=== PATIENT | female | born 1940 | race Caucasian/White ===

== ENCOUNTER → 2017-09-04 | Outpatient (CLI) | payer OTHER, MEDICARE ==
[~2017-09-04] MED LIST: CHOL20007 PO; MULT-506 PO
--- NOTE | 2017-09-04 09:34 | DIAGNOSTIC IMAGING REPORT ---
RIGHT WRIST 5 VIEWS CLINICAL HISTORY: Right wrist pain and swelling. No reported history of from a. FINDINGS: 5 views of the right wrist are obtained. No prior studies are available for comparison at the time of dictation. The skeletal structures are osteopenic. No fracture is seen. There is mild negative ulnar variance. Degenerative narrowing seen at the radiocarpal articulation. Advanced arthritic change is present at the first carpometacarpal and second carpometacarpal joints with bony overgrowth, sclerosis, subchondral cyst formation, and mild subluxation at the first carpometacarpal joint. Only mild degenerative change is seen throughout the remainder of the wrist. Degenerative cystic changes present in the styloid process of the ulna. No erosive change is seen. Soft tissue edema is noted around the wrist. No subcutaneous gas or radiodense foreign body is identified. IMPRESSION: 1. Soft tissue swelling with no acute bony abnormality seen in the left wrist. 2. Osteopenia and arthritic change as above, greatest at the first carpometacarpal joint. Electronically signed by: Clarence Roque M.D. 09/04/2017 9:32 AM Dictated Date/Time: 09/04/2017 9:30 AM
== END | disposition home or self-care (01) ==
LOC: C.RAD1850 09:18
PROVIDERS: ATTEND Family Medicine
DX: M25.531 Pain in right wrist (principal); M79.89 Other specified soft tissue disorders; M85.831 Other specified disorders of bone density and structure, right forearm; M89.8X3 Other specified disorders of bone, forearm

== ENCOUNTER → 2018-03-11 | Outpatient (CLI) | payer OTHER, MEDICARE | END | disposition home or self-care (01) | LOC: C.MAMM 09:28 | PROVIDERS: ATTEND Family Medicine | DX: M85.89 Other specified disorders of bone density and structure, multiple sites (principal) ==

== ENCOUNTER 2022-08-27 18:13 | Inpatient (IN) ==
[2022-08-27] MEDS ORDERED: MoRPHine SULFATE 2 MG/ML CARP IM STA (18:52)
[2022-08-27] MEDS ORDERED: ONDANSETRON 4 MG OD TAB PO STA (18:52)
--- NOTE | 2022-08-27 19:29 | XRay Report ---
XR hip RT 2V w pelvis HISTORY: 82 years-old Female fall, hip pain acute right hip pain status post fall COMPARISON: CT abdomen and pelvis 03/26/2014 TECHNIQUE: AP view of the pelvis with 2 views of the right hip FINDINGS: Mild osteoarthritis of the hips. Demineralized appearance of the bones. There is an acute subcapital fracture of the right femur which demonstrates 3.5 cm of superior elevation and several millimeters o f impaction. No dislocation. Moderate lateral soft tissue swelling. No additional acute fracture or d islocation identified. IMPRESSION: Acute impacted and displaced subcapital right femoral fracture. ACT 112: Negative or not required by law. The above report was generated using voice recognition software. It may contain grammatical, syntax o r spelling errors. Electronically signed by: Primo Ferguson M.D. 08/27/2022 7:27 PM
[2022-08-27] MEDS ORDERED: MoRPHine SULFATE 2 MG/ML CARP IV PRN (19:55)
[2022-08-27] MEDS: HYDROmorphone INJ 0.5 MG/0.5 ML SYR IV PRN ×2 (20:33→22:32)
[2022-08-27 20:51] LABS: Hematocrit (blood only) 37.9 % (34.1-44.9); Hemoglobin 13.2 g/dl (12.0-16.0); Mean Corpuscular Hemoglobin 34.1 pg (25.0-34.0); Mean Corpuscular Hgb Conc 34.8 g/dL (32.0-36.0); Mean Corpuscular Volume 97.9 fL (80.0-100.0); Mean Platelet Volume 9.9 fL (9.4-12.3); Platelet Count 182 K/uL (130-400); RDW Coefficient of Variation 12.5 % (11.5-14.5); RDW Standard Deviation 44.9 fL (36.4-46.3); Red Blood Count 3.87 M/uL (3.93-5.22); White Blood Count 12.79 K/ul (4.8-10.8)
[2022-08-27 21:03] LABS: INR 1.2 (0.9-1.1); Partial Thromboplastin Ratio 1.1; Prothrombin Time 12.9 Seconds (9.0-12.0)
[2022-08-27 21:19] LABS: Appearance Urine Clear (Clear); Bacteria Urine Automated Negative (Negative); Bilirubin Urine Negative (Negative); Blood Urine 3+ (Negative); Color Urine Yellow; Glucose Urine UA Trace (Negative); Ketones Urine 1+ (Negative); Leukocyte Esterase Urine Negative (Negative); Nitrite Urine Negative (Negative); RBC Urine Automated >30 /hpf (0-4); Specific Gravity Urine 1.012 (1.000-1.030); Urobilinogen Urine Negative (Negative); pH Urine 7.5 (4.5-7.5)
[2022-08-27 21:22] LABS: Protein Urine 3+ (Negative)
--- NOTE | 2022-08-27 21:24 | History & Physical Report ---
Date of Service August 27, 2022 Assessment & Plan (1) Closed right hip fracture: Plan: Patient is an 82 yo female with PMHx of CKD, HTN, colon cancer, osteopenia, secondary renal hyperparathyroidism admitted to [facility] on 08/27/22 for right hip fracture s/p fall. Right hip fracture - Fall from standing position at home on 08/27/22 - Hip/pelvis XR: Acute impacted and displaced subcapital right femoral fracture. - Ortho consulted - Will admit for pain control pending surgical intervention - Pain control regimen: morphine 2mg IV q3h for pain 1-5; morphine 4mg IV q3h for pain 6-10 - Zofran prn nausea - IVF with LR at 125 cc/hr - NPO at midnight - Leukocytosis on admission with WBC 12.79, likely reactive - CBC and CMP in AM Hypokalemia - Mild hypokalemia, K 3.3 - Replete with 20 mEq K on admission - Recheck in AM CKD stage G2/A2 - Patient follows with nephrology, Dr. Burnette - Baseline Cr 1.3 w/ mGFR 69 cc/min Proteinuria with history of plasmacytoma (resected) - 3+ protein on UA today - Monitor. Recommend outpatient f/u Hypertension - Hx of HTN that has not required antihypertensive therapy - Suspect HTN on admission associated with pain response - Continue to monitor Vitamin D Deficiency - Most recent Vitamin D 06/2022 was 44 - Continue home Vitamin D Dispo: Admit to [facility] [place] with plan for ortho evaluation FENGI: NPO. IVF with LR at 125 cc/hr Code Status: FULL CODE (2) Vitamin D deficiency: (3) Proteinuria: (4) Chronic kidney disease, stage II (mild): (5) Hypertension: History of Present Illness Chief Complaint: right hip fracture s/p fall Primary Care Provider: Jesús Delgadillo Patient is an 82 yo female with PMHx of CKD, HTN, colon cancer, osteopenia, secondary renal hyperparathyroidism who presented to [facility] on 08/27/22 after fall. Patient states that around 2:00pm this afternoon, she was sitting on a low barstool at her kitchen island when she stood up from the stool, twisted, tripped on the stool, and fell onto the ceramic tile floor. Patient landed on her right elbow and right hip. She did not hit her head or have LOC. Patient was able to stand, clean up her dishes, grab her book, and walk over to her chair to sit. She did, however, note some difficulty with ambulation and pain in the hip. While sitting in the chair, patient had progressively worsening right hip pain and she "knew that it was broken." After about 45 minutes of sitting in the chair, she tried to get up to get Tylenol for pain relief but she was unable to stand/walk out of the chair. Pain progressed to a 9/10 sharp pain. Patient states that she has intermittent sharp pains with attempted movement. Prior to today's fall, she was at her baseline health. No recent illness. Denies fever, c hills, CP, SOB, abd pain, nausea, vomiting, diarrhea, constipation, numbness, or tingling. No prior hx of hip fracture. She does have a hx of left wrist fracture about 6-7 years ago and more recently a 3rd metatarsal left foot stress fracture. Patient lives alone with her cat. There are no steps to enter her home. All living is on one floor with no step inside of the home. She does have help; sister lives nearby. Patient is independent in ADLs. She does her own shopping, cooking, and cleaning. Allergies Allergy/AdvReac Type Severity Reaction Status Date / Time No Known Allergies Allergy Verified 08/27/22 23:01 Home Medications Medication Instructions Recorded Confirmed Type cholecalciferol (vitamin D3) 50 1,000 units PO QPM 05/07/20 08/27/22 History mcg (2,000 unit) capsule iiccxsczzghe-[id number]-ertd-minerals 1 tab PO DAILY 08/27/22 08/27/22 History Past Med/Surg History Medical History Chronic kidney disease, stage II (mild) Extramedullary plasmacytoma hx; bladder; treated surgically History of breast cancer > 25 years ago; treated surgically History of colon cancer approx 5 years ago; surgery + chemo History of hemorrhoids Hypertension Osteoporosis Surgical History H/O mastectomy History of breast surgery Enlargement Procedure with Prosthetic Implant History of cataract surgery History of colon resection History of dilation and curettage History of mastectomy BL History of mastoidectomy History of partial colectomy History of surgery Ureteroplasty Family History Sister Mesothelioma Other No family history of adverse response to anesthesia Denies family history of Colon cancer Ovarian cancer Breast cancer Social History Smoking Status: Never smoker Second Hand Exposure: No; Do You Dip or Chew Tobacco: No; Tobacco Cessation Education Requested by Patient: No Hx Alcohol Use: No Hx Substance Use: No Preferred Language: Sinhala Communication Ability: Effective Date Puller Required: No Beliefs That Will Affect Care: None marital status: / Current Living Situation: Alone Other Information That Helps Us Care for You: No Feels Safe at Home: Yes Safety Concerns: Feels Safe At This Time Assistive Devices: None Review of Systems Review of Systems: See HPI Physical Exam Physical Exam: GENERAL: No acute distress. Well developed and well nourished. Vital signs reviewed. EYES: PERRLA. EOMI. Anicteric sclerae. HENT: Moist mucous membranes. No pharyngeal erythema or exudates. RESPIRATORY: Clear to auscultation bilaterally with auscultation anteriorly and laterally; unable to listen to posterior lung sheth. No wheezing, rales, or rhonchi. CARDIOVASCULAR: Regular rate and rhythm. No murmurs. No JVD. ABDOMEN: Soft, non-tender and non-distended. Normal bowel sounds. EXTREMITIES: No edema. Right lower extremity shortened and externally rotated. There is a large hematoma over right lateral hip. The left hip is nontender to palpation. Lower extremities NVI bilaterally. There is a large hematoma over right elbow w/o significant tenderness to palpation. SKIN: Warm, dry. NEUROLOGIC: A/O x3. Normal speech. CN II-XII grossly intact, but not individually tested. PSYCHIATRIC: Cooperative. Appropriate mood and affect. Results & Data Results & Data ([facility]) Vital Signs (Past 12 Hours) Vital Signs Temp Pulse Resp BP Pulse Ox O2 Del Method 08/27/22 18:18 36.5 C 110 H 20 205/114 H 96 Room Air Laboratory Results 08/27/22 08/27/22 08/27/22 Range/Units 21:11 21:03 20:31 WBC (4.8-10.8) K/ul RBC (3.93-5.22) M/uL Hgb (12.0-16.0) g/dl Hct (34.1-44.9) % MCV (80.0-100.0) fL MCH (25.0-34.0) pg MCHC (32.0-36.0) g/dL RDW Std Deviation (36.4-46.3) fL RDW Coeff of Andreia (11.5-14.5) % Plt Count (130-400) K/uL MPV (9.4-12.3) fL Immature Gran % (Auto) % Neut % (Auto) % Lymph % (Auto) % [place] % (Auto) % Eos % (Auto) % Baso % (Auto) % Neut # (Auto) (1.4-6.5) K/uL Lymph # (Auto) (1.2-3.4) K/uL [place] # (Auto) (0.24-0.82) K/uL Eos # (Auto) (0-0.50) K/uL Baso # (Auto) (0-0.2) K/uL Immature Gran # (Auto) (0.00-0.02) K/uL PT (9.0-12.0) Seconds INR (0.9-1.1) APTT (21.0-31.0) Seconds PTT Ratio Sodium 132 L (136-145) mmol/L Potassium 3.3 L (3.5-5.1) mmol/L Chloride 96 L (98-107) mmol/L Carbon Dioxide 26 (21-32) mmol/L Anion Gap 10 (3-11) BUN 19 (6-23) mg/dl Creatinine 0.78 (0.6-1.2) mg/dl Est Cr Clr Drug Dosing Not Reportable Est GFR ( Amer) 80.9 ml/min Est GFR (Non-Af Amer) 69.8 ml/min BUN/Creatinine Ratio 24.4 H (10-20) Glucose 199 H (70-99(Fasting)) mg/dl Calcium 9.9 (8.5-10.1) mg/dl Total Bilirubin 1.8 H (0.2-1.0) mg/dl AST 35 (13-39) U/L ALT 35 (7-52) U/L Alkaline Phosphatase 62 (34-104) U/L Total Protein 8.2 (6.0-8.3) gm/dl Albumin 4.7 (3.4-5.0) gm/dl Globulin 3.5 (2.5-4.0) gm/dl Albumin/Globulin Ratio 1.3 (0.9-2) Urine Color Yellow Urine Appearance Clear (Clear) Urine pH 7.5 (4.5-7.5) Ur Specific [place] 1.012 (1.000-1.030) Urine Protein 3+ H (Negative) Urine Glucose (UA) Trace H (Negative) Urine Ketones 1+ H (Negative) Urine Blood 3+ H (Negative) Urine Nitrite Negative (Negative) Urine Bilirubin Negative (Negative) Urine Urobilinogen Negative (Negative) Ur Leukocyte Esterase Negative (Negative) Urine WBC (Auto) 1-5 (0-5) /hpf Urine RBC (Auto) >30 H (0-4) /hpf U Hyaline Cast (Auto) 1-5 (0-5) /lpf U Epithel Cells (Auto) 10-20 H (0-5) /lpf Urine Bacteria (Auto) Negative (Negative) SARS-CoV-2, RNA, NAAT NEGATIVE (NEGATIVE) 08/27/22 08/27/22 Range/Units 20:31 20:31 WBC 12.79 H (4.8-10.8) K/ul RBC 3.87 L (3.93-5.22) M/uL Hgb 13.2 (12.0-16.0) g/dl Hct 37.9 (34.1-44.9) % MCV 97.9 (80.0-100.0) fL MCH 34.1 H (25.0-34.0) pg MCHC 34.8 (32.0-36.0) g/dL RDW Std Deviation 44.9 (36.4-46.3) fL RDW Coeff of Andreia 12.5 (11.5-14.5) % Plt Count 182 (130-400) K/uL MPV 9.9 (9.4-12.3) fL Immature Gran % (Auto) 0.7 % Neut % (Auto) 94.0 % Lymph % (Auto) 1.6 % [place] % (Auto) 3.5 % Eos % (Auto) 0.0 % Baso % (Auto) 0.2 % Neut # (Auto) 12.02 H (1.4-6.5) K/uL Lymph # (Auto) 0.20 L (1.2-3.4) K/uL [place] # (Auto) 0.45 (0.24-0.82) K/uL Eos # (Auto) 0.00 (0-0.50) K/uL Baso # (Auto) 0.03 (0-0.2) K/uL Immature Gran # (Auto) 0.09 H (0.00-0.02) K/uL PT 12.9 H (9.0-12.0) Seconds INR 1.2 H (0.9-1.1) APTT 31.0 (21.0-31.0) Seconds PTT Ratio 1.1 Sodium (136-145) mmol/L Potassium (3.5-5.1) mmol/L Chloride (98-107) mmol/L Carbon Dioxide (21-32) mmol/L Anion Gap (3-11) BUN (6-23) mg/dl Creatinine (0.6-1.2) mg/dl Est Cr Clr Drug Dosing Est GFR ( Amer) ml/min Est GFR (Non-Af Amer) ml/min BUN/Creatinine Ratio (10-20) Glucose (70-99(Fasting)) mg/dl Calcium (8.5-10.1) mg/dl Total Bilirubin (0.2-1.0) mg/dl AST (13-39) U/L ALT (7-52) U/L Alkaline Phosphatase (34-104) U/L Total Protein (6.0-8.3) gm/dl Albumin (3.4-5.0) gm/dl Globulin (2.5-4.0) gm/dl Albumin/Globulin Ratio (0.9-2) Urine Color Urine Appearance (Clear) Urine pH (4.5-7.5) Ur Specific [place] (1.000-1.030) Urine Protein (Negative) Urine Glucose (UA) (Negative) Urine Ketones (Negative) Urine Blood (Negative) Urine Nitrite (Negative) Urine Bilirubin (Negative) Urine Urobilinogen (Negative) Ur Leukocyte Esterase (Negative) Urine WBC (Auto) (0-5) /hpf Urine RBC (Auto) (0-4) /hpf U Hyaline Cast (Auto) (0-5) /lpf U Epithel Cells (Auto) (0-5) /lpf Urine Bacteria (Auto) (Negative) SARS-CoV-2, RNA, NAAT (NEGATIVE) Diagnostic Findings [facility] [place] [phone] XRay Report Patient:SHELIA ALAMO Admit Date:08/27/22 MR#:[id number] Address1:[address] Acct ID:[id number] Address2: Date:[address] [facility] Zip:[place] [address] Age:82 Location:ED Sex:F Room/Bed: Att Phy: Diagnosis:FALL, HIP PAIN, TROUBLE WALKING Magdalena Phy:Jesús Delgadillo M.D. Service Date:08/27/22 Fam Phy: Interpreting Phy:Primo FergusonAdmit Phy: Ordering Phy:Sonia Hutchison PA-C cc: ~ XR hip RT 2V w pelvis HISTORY: 82 years-old Female fall, hip pain acute right hip pain status post fall COMPARISON: CT abdomen and pelvis 03/26/2014 TECHNIQUE: AP view of the pelvis with 2 views of the right hip FINDINGS: Mild osteoarthritis of the hips. Demineralized appearance of the bones. There is an acute subcapital fracture of the right femur which demonstrates 3.5 cm of superior elevation and several millimeters of impaction. No dislocation. Moderate lateral soft tissue swelling. No additional acute fracture or dislocation identified. IMPRESSION: Acute impacted and displaced subcapital right femoral fracture. ACT 112: Negative or not required by law. The above report was generated using voice recognition software. It may contain grammatical, syntax or spelling errors. Electronically signed by: Primo Ferguson M.D. 08/27/2022 7:27 PM Dictated:08/27/221925 Transcribed: 08/27/221925 Supervising Physician Co-Signing Physician Notes Attending addendum: I have physically seen this patient, have supervised the medical residents activities, and agree with the H&P unless as otherwise noted. Assessment and Plan: Acute impacted, displaced sup capital right femoral fracture- N.p.o. after midnight Acetaminophen 1 g IV every 8 hours as needed mild pain or fever Morphine sulfate 2 mg IV every 3 hours as needed for moderate pain Morphine sulfate 4 mg IV every 3 hours as needed for severe pain Zofran 4 mg IV every 6 hours as needed Famotidine 20 mg IV every 12 hours Orthopedic surgery consult Remaining orders and notations as noted Resident Activity Tracking Resident Involvement: Resident Care Provided Care Provided: [facility] Medicine
[2022-08-27 21:38] LABS: Alanine Aminotransferase 35 U/L (7-52); Albumin Globulin Ratio 1.3 (0.9-2); Albumin Level 4.7 gm/dl (3.4-5.0); Alkaline Phosphatase 62 U/L (34-104); Anion Gap 10 (3-11); Aspartate Aminotransferase 35 U/L (13-39); BUN Creatinine Ratio 24.4 (10-20); Bilirubin,Total 1.8 mg/dl (0.2-1.0); Blood Urea Nitrogen 19 mg/dl (6-23); Calcium 9.9 mg/dl (8.5-10.1); Carbon Dioxide 26 mmol/L (21-32); Chloride 96 mmol/L (98-107); Est GFR (African American) 80.9 ml/min; Est GFR (Non-African American) 69.8 ml/min; Globulin 3.5 gm/dl (2.5-4.0); Glucose 199 mg/dl (70-99(Fasting)); Potassium 3.3 mmol/L (3.5-5.1); Sodium 132 mmol/L (136-145); Total Protein 8.2 gm/dl (6.0-8.3)
[2022-08-27 21:42] LABS: Basophils # (auto) 0.03 K/uL (0-0.2); Basophils % (auto) 0.2 %; Immature Granulocytes # (auto) 0.09 K/uL (0.00-0.02); Immature Granulocytes % (auto) 0.7 %; Lymphocytes % (auto) 1.6 %; Monocytes # (auto) 0.45 K/uL (0.24-0.82); Monocytes % (auto) 3.5 %; Neutrophils # (auto) 12.02 K/uL (1.4-6.5)
--- NOTE | 2022-08-27 23:57 | Emergency Department Note ---
History of Present Illness General Chief complaint: Hip Pain Stated complaint: FALL, HIP PAIN, TROUBLE WALKING Time Seen by Provider: 08/27/22 18:41 History of Present Illness Maximum Pain Intensity: 6 This 82-year-old female patient presents to the emergency department with her sister and her sister's [id number] complaining of right hip pain. The patient states that around 2 or 2:30 PM today she was on a stool trying to swat at the cat. When she went to get off of the stool, the stool twisted and knocked her to a standing position and then she tripped and fell over the stool falling to the tile floor onto her right hip. She is not able to walk currently, but was able to walk initially right after the fall. She is able to move the hip slightly, but usually gets sharp shooting pains whenever she tries to move it. She rates the pain as 8/10. She has not taken any medication for the symptoms. No previous fractures or surgeries to the right hip. She denies hitting her head. No loss of consciousness. She denies any neck or back pain. Denies any chest pain, shortness of breath, abdominal pain, nausea, or vomiting. She denies injuring any other extremities. She denies any numbness or tingling to the right lower extremity. Home Medications Medication Instructions Recorded Confirmed Type cholecalciferol (vitamin D3) 50 1,000 units PO QPM 05/07/20 08/27/22 History mcg (2,000 unit) capsule vkzwojnkalbw-Oa-dyhu-minerals 1 tab PO DAILY 08/27/22 08/27/22 History Allergies Allergy/AdvReac Type Severity Reaction Status Date / Time No Known Allergies Allergy Verified 08/27/22 23:01 Past Med/Surg History Medical History Chronic kidney disease, stage II (mild) Extramedullary plasmacytoma hx; bladder; treated surgically History of breast cancer > 25 years ago; treated surgically History of colon cancer approx 5 years ago; surgery + chemo History of hemorrhoids Hypertension Osteoporosis Surgical History H/O mastectomy History of breast surgery Enlargement Procedure with Prosthetic Implant History of cataract surgery History of colon resection History of dilation and curettage History of mastectomy BL History of mastoidectomy History of partial colectomy History of surgery Ureteroplasty Family History Sister Mesothelioma Other No family history of adverse response to anesthesia Denies family history of Colon cancer Ovarian cancer Breast cancer Social History Smoking Status: Never smoker Second Hand Exposure: No; Hx Alcohol Use: No Hx Substance Use: No Preferred Language: British Communication Ability: Effective Head Of Commission Department Required: No Beliefs That Will Affect Care: None marital status: / Current Living Situation: Alone Feels Safe at Home: Yes Assistive Devices: Glasses Review of Systems See HPI for pertinent positives & negatives. and A total of 10 systems reviewed and were otherwise negative Physical Exam Vital Signs Vital Signs - 24 hr 08/27/22 18:18 08/27/22 18:21 08/27/22 22:14 Temperature 36.5 C Temperature Source Temporal Artery Scan Pulse Rate 110 H Pulse Rate [Apical] 109 H 106 H Pulse Rhythm [Apical] Pulse Strength [Apical] Respiratory Rate 20 15 17 Respiratory Effort / Characteristics Non-Labored Non-Labored Respiratory Depth Normal Respiratory Pattern Blood Pressure 205/114 H Blood Pressure [Left Arm] 165/100 H 148/97 H Blood Pressure Mean 144 Blood Pressure Mean [Left Arm] 121 114 Blood Pressure Position [Left Arm] Pulse Oximetry 96 92 96 Oxygen Delivery Method Room Air Room Air Room Air Oxygen Flow Rate Sepsis Recent Fever Within 48 Hours No Sepsis New/Unexplained Change in Mental Status N/A Sepsis Action Taken by Nursing No Action Required 08/27/22 23:11 Temperature Temperature Source Pulse Rate Pulse Rate [Apical] 105 H Pulse Rhythm [Apical] Regular Pulse Strength [Apical] Normal Respiratory Rate 16 Respiratory Effort / Characteristics Non-Labored Respiratory Depth Normal Respiratory Pattern Regular Blood Pressure Blood Pressure [Left Arm] 155/100 H Blood Pressure Mean Blood Pressure Mean [Left Arm] 118 Blood Pressure Position [Left Arm] Lying Pulse Oximetry 98 Oxygen Delivery Method Nasal Cannula Oxygen Flow Rate 2 Sepsis Recent Fever Within 48 Hours Sepsis New/Unexplained Change in Mental Status Sepsis Action Taken by Nursing VITALS: Vitals are noted on the nurse's note and reviewed by myself. GENERAL: 82-year-old female, in no acute distress, non-diaphoretic, well- developed well-nourished. SKIN: The patient has an area of ecchymosis and indurated edema to the lateral aspect of the right hip. Mild ecchymosis to the right elbow as well, but no tenderness to palpation. No obvious lacerations or abrasions. Capillary reflex less than 2 seconds. HEAD: Normocephalic atraumatic. EARS: External auditory canals clear, tympanic membranes pearly gresham without erythema or effusion bilaterally. No hemotympanum. No overton sign. No mastoid tenderness. EYES: Pupils equal round and reactive to light and accommodation. Conjunctivae without injection, sclerae without icterus. Extraocular movements intact. NOSE: Patent, turbinates without inflammation or discharge. MOUTH: Mucous membranes moist. Pharynx without erythema or exudate. Uvula midline. Airway patent. Tongue does not deviate. NECK: Supple without nuchal rigidity. Cervical spine is nontender. Full range of motion of the neck without tenderness. HEART: Regular rate and rhythm without murmurs gallops or rubs. LUNGS: Clear to auscultation bilaterally without wheezes, rales or rhonchi. No retractions or accessory muscle use. No chest wall tenderness. ABDOMEN: Positive bowel sounds x 4. Normal tympanic percussion. Soft, nontender, without masses or organomegaly. No guarding or rebound tenderness. MUSCULOSKELETAL: No tenderness of the thoracic or lumbar spine. No tenderness with pelvic rocking. She is holding her right hip slightly flexed with a towel under her knee in a position of comfort. There is slight shortening of the right leg and she feels more comfortable with external rotation of the hip. She is tender to palpation over the lateral aspect of the right hip in the area of the hematoma as well is into the right groin. I am unable to assess range of motion due to degree of pain. No tenderness to palpation of the right femur, knee, tib-fib, ankle, or foot. Full range of motion of the right ankle and toes, but range of motion of the right knee causes pain in the right hip. Dorsalis pedis and posterior tibial pulse 2+. Normal sensation to light and sharp touch of the right lower extremity. Full range of motion without tenderne ss to palpation in all remaining extremities. NEURO: Patient was alert and oriented to person place and time. Cerebellar function intact. No focal neurological deficits. Course Administered Medications Hydromorphone HCl (Hydromorphone Inj 0.5 Mg/0.5 Ml Syr) 0.5 mg IV Q20M PRN PRN Reason: Severe Pain (Rating 7,8,9,10) Stop: 09/10/22 19:54 Last Admin: 08/27/22 22:32 Dose: 0.5 mg Documented By: Admin: 08/27/22 20:33 Dose: 0.5 mg Documented By: ML Discontinued Medications Morphine Sulfate (Morphine Sulfate 2 Mg/Ml Carp) 2 mg IM NOW STA Stop: 08/27/22 18:53 Last Admin: 08/27/22 19:04 Dose: 2 mg Documented By: MED Ondansetron HCl (Ondansetron 4 Mg Od Tab) 4 mg PO NOW STA Stop: 08/27/22 18:53 Last Admin: 08/27/22 19:05 Dose: 4 mg Documented By: MED Medical Decision Making Differential Diagnosis Differential diagnosis includes fracture, subluxation, dislocation, contusion, ligamentous injury, neurovascular, compartment syndrome, rhabdomyolysis, as well as other pathologies. Laboratory Data Attestation: I reviewed the patient's lab results. Result diagrams: 08/27/22 20:31 08/27/22 20:31 Lab Results 08/27/22 08/27/22 08/27/22 Range/Units 20:31 20:31 20:31 WBC 12.79 H (4.8-10.8) K/ul RBC 3.87 L (3.93-5.22) M/uL Hgb 13.2 (12.0-16.0) g/dl Hct 37.9 (34.1-44.9) % MCV 97.9 (80.0-100.0) fL MCH 34.1 H (25.0-34.0) pg MCHC 34.8 (32.0-36.0) g/dL RDW Std Deviation 44.9 (36.4-46.3) fL RDW Coeff of Andreia 12.5 (11.5-14.5) % Plt Count 182 (130-400) K/uL MPV 9.9 (9.4-12.3) fL Immature Gran % (Auto) 0.7 % Neut % (Auto) 94.0 % Lymph % (Auto) 1.6 % [place] % (Auto) 3.5 % Eos % (Auto) 0.0 % Baso % (Auto) 0.2 % Neut # (Auto) 12.02 H (1.4-6.5) K/uL Lymph # (Auto) 0.20 L (1.2-3.4) K/uL [place] # (Auto) 0.45 (0.24-0.82) K/uL Eos # (Auto) 0.00 (0-0.50) K/uL Baso # (Auto) 0.03 (0-0.2) K/uL Immature Gran # (Auto) 0.09 H (0.00-0.02) K/uL PT 12.9 H (9.0-12.0) Seconds INR 1.2 H (0.9-1.1) APTT 31.0 (21.0-31.0) Seconds PTT Ratio 1.1 Sodium 132 L (136-145) mmol/L Potassium 3.3 L (3.5-5.1) mmol/L Chloride 96 L (98-107) mmol/L Carbon Dioxide 26 (21-32) mmol/L Anion Gap 10 (3-11) BUN 19 (6-23) mg/dl Creatinine 0.78 (0.6-1.2) mg/dl Est Cr Clr Drug Dosing Not Reportable Est GFR ( Amer) 80.9 ml/min Est GFR (Non-Af Amer) 69.8 ml/min BUN/Creatinine Ratio 24.4 H (10-20) Glucose 199 H (70-99(Fasting)) mg/dl Calcium 9.9 (8.5-10.1) mg/dl Total Bilirubin 1.8 H (0.2-1.0) mg/dl AST 35 (13-39) U/L ALT 35 (7-52) U/L Alkaline Phosphatase 62 (34-104) U/L Total Protein 8.2 (6.0-8.3) gm/dl Albumin 4.7 (3.4-5.0) gm/dl Globulin 3.5 (2.5-4.0) gm/dl Albumin/Globulin Ratio 1.3 (0.9-2) Urine Color Urine Appearance (Clear) Urine pH (4.5-7.5) Ur Specific [place] (1.000-1.030) Urine Protein (Negative) Urine Glucose (UA) (Negative) Urine Ketones (Negative) Urine Blood (Negative) Urine Nitrite (Negative) Urine Bilirubin (Negative) Urine Urobilinogen (Negative) Ur Leukocyte Esterase (Negative) Urine WBC (Auto) (0-5) /hpf Urine RBC (Auto) (0-4) /hpf U Hyaline Cast (Auto) (0-5) /lpf U Epithel Cells (Auto) (0-5) /lpf Urine Bacteria (Auto) (Negative) SARS-CoV-2, RNA, NAAT (NEGATIVE) 08/27/22 08/27/22 Range/Units 21:03 21:11 WBC (4.8-10.8) K/ul RBC (3.93-5.22) M/uL Hgb (12.0-16.0) g/dl Hct (34.1-44.9) % MCV (80.0-100.0) fL MCH (25.0-34.0) pg MCHC (32.0-36.0) g/dL RDW Std Deviation (36.4-46.3) fL RDW Coeff of Andreia (11.5-14.5) % Plt Count (130-400) K/uL MPV (9.4-12.3) fL Immature Gran % (Auto) % Neut % (Auto) % Lymph % (Auto) % [place] % (Auto) % Eos % (Auto) % Baso % (Auto) % Neut # (Auto) (1.4-6.5) K/uL Lymph # (Auto) (1.2-3.4) K/uL [place] # (Auto) (0.24-0.82) K/uL Eos # (Auto) (0-0.50) K/uL Baso # (Auto) (0-0.2) K/uL Immature Gran # (Auto) (0.00-0.02) K/uL PT (9.0-12.0) Seconds INR (0.9-1.1) APTT (21.0-31.0) Seconds PTT Ratio Sodium (136-145) mmol/L Potassium (3.5-5.1) mmol/L Chloride (98-107) mmol/L Carbon Dioxide (21-32) mmol/L Anion Gap (3-11) BUN (6-23) mg/dl Creatinine (0.6-1.2) mg/dl Est Cr Clr Drug Dosing Est GFR ( Amer) ml/min Est GFR (Non-Af Amer) ml/min BUN/Creatinine Ratio (10-20) Glucose (70-99(Fasting)) mg/dl Calcium (8.5-10.1) mg/dl Total Bilirubin (0.2-1.0) mg/dl AST (13-39) U/L ALT (7-52) U/L Alkaline Phosphatase (34-104) U/L Total Protein (6.0-8.3) gm/dl Albumin (3.4-5.0) gm/dl Globulin (2.5-4.0) gm/dl Albumin/Globulin Ratio (0.9-2) Urine Color Yellow Urine Appearance Clear (Clear) Urine pH 7.5 (4.5-7.5) Ur Specific [place] 1.012 (1.000-1.030) Urine Protein 3+ H (Negative) Urine Glucose (UA) Trace H (Negative) Urine Ketones 1+ H (Negative) Urine Blood 3+ H (Negative) Urine Nitrite Negative (Negative) Urine Bilirubin Negative (Negative) Urine Urobilinogen Negative (Negative) Ur Leukocyte Esterase Negative (Negative) Urine WBC (Auto) 1-5 (0-5) /hpf Urine RBC (Auto) >30 H (0-4) /hpf U Hyaline Cast (Auto) 1-5 (0-5) /lpf U Epithel Cells (Auto) 10-20 H (0-5) /lpf Urine Bacteria (Auto) Negative (Negative) SARS-CoV-2, RNA, NAAT NEGATIVE (NEGATIVE) Imaging Data Radiologist's Impression: Hip/Pelvis X-Ray 08/27/22 18:52 XR hip RT 2V w pelvis HISTORY: 82 years-old Female fall, hip pain acute right hip pain status post fall COMPARISON: CT abdomen and pelvis 03/26/2014 TECHNIQUE: AP view of the pelvis with 2 views of the right hip FINDINGS: Mild osteoarthritis of the hips. Demineralized appearance of the bones. There is an acute subcapital fracture of the right femur which demonstrates 3.5 cm of superior elevation and several millimeters of impaction. No dislocation. Moderate lateral soft tissue swelling. No additional acute fracture or dislocat ion identified. IMPRESSION: Acute impacted and displaced subcapital right femoral fracture. ACT 112: Negative or not required by law. The above report was generated using voice recognition software. It may contain grammatical, syntax or spelling errors. Electronically signed by: Primo Ferguson M.D. 08/27/2022 7:27 PM MDM Narrative I examined the patient. She was given morphine 2 mg IM and Zofran 4 mg p.o. for pain. Imaging studies were reviewed by myself and read by radiology as per imaging data section of the note. X-ray of the right hip with pelvis shows an acute impacted and displaced subcapital right femoral fracture. I discussed these findings with the patient and her family and discussed that she would require admission for definitive orthopedic management of the hip fracture. An IV lock was placed and work-up was initiated for admission and probable surgery. She was given Dilaudid 0.5 mg IV for additional pain control. I had a misbah ningful discussion about this patient with Dr. Sousa. They agree with my assessment and the treatment plan. Work-up prior to admission revealed a negative COVID test. Urinalysis with 3+ protein, trace glucose, 1+ ketones, 3+ blood, greater than 30 red blood cells, and 10-20 epithelial cells. White blood cell count elevated at 12.79. INR 1.2. aPTT 31. Sodium and potassium slightly low at 132 and 3.3 respectively. Glucose elevated at 199. Total bilirubin elevated at 1.8, but other LFTs were normal. I contacted the on-call hospitalist for admission and the patient was admitted in stable condition. Impression & Plan Closed subcapital fracture of femur Discharge Plan Visit Data Chief Complaint: Hip Pain Stated Complaint: FALL, HIP PAIN, TROUBLE WALKING ED Provider: Don Sousa ED Midlevel Provider: Sonia Hutchison Discharge Problem: Closed subcapital fracture of femur Patient Disposition: Admitted As Inpatient Condition: Good Discharge Instructions Interventions: ED Discharge Assessment Last Done: 08/27/22 23:55
[2022-08-28] MEDS ORDERED: bisacodyL 10 MG SUPP PR PRN ×2 (00:01→16:56)
[2022-08-28] MEDS ORDERED: MoRPHine SULFATE 4 MG/ML 1 ML CARP\\VIAL IV PRN (00:01)
[2022-08-28] MEDS ORDERED: MAGNESIUM HYDROXIDE SUSP 30 ML UDC PO PRN ×2 (00:01→16:56)
[2022-08-28] MEDS ORDERED: ONDANSETRON INJ 2 MG/ML 2 ML VIAL IV PRN ×3 (00:01→16:56)
[2022-08-28] MEDS ORDERED: NALOXONE HCL 0.4 MG/1 ML VIAL/CARP IV PRN ×2 (00:01→16:56)
[2022-08-28] MEDS: LACTATED RINGER'S 1,000 ML IV SCH ×3 (00:34→17:08)
[2022-08-28] MEDS ORDERED: POTASSIUM CHLORIDE CRTAB 20 MEQ TABCR PO STA (02:24)
[2022-08-28] MEDS: POTASSIUM CHLORIDE / WTR 10 MEQ/100 ML PLCT IV SCH ×2 (04:01→05:05)
[2022-08-28 04:04] LABS: Hematocrit (blood only) 34.6 % (34.1-44.9); Mean Corpuscular Hemoglobin 34.1 pg (25.0-34.0); Mean Corpuscular Hgb Conc 34.7 g/dL (32.0-36.0); Mean Corpuscular Volume 98.3 fL (80.0-100.0); Mean Platelet Volume 9.8 fL (9.4-12.3); Platelet Count 145 K/uL (130-400); RDW Coefficient of Variation 12.5 % (11.5-14.5); RDW Standard Deviation 44.8 fL (36.4-46.3); Red Blood Count 3.52 M/uL (3.93-5.22); White Blood Count 8.73 K/ul (4.8-10.8)
[2022-08-28 04:38] LABS: Basophils # (auto) 0.02 K/uL (0-0.2); Basophils % (auto) 0.2 %; Immature Granulocytes # (auto) 0.04 K/uL (0.00-0.02); Immature Granulocytes % (auto) 0.5 %; Lymphocytes # (auto) 0.38 K/uL (1.2-3.4); Lymphocytes % (auto) 4.4 %; Monocytes # (auto) 0.33 K/uL (0.24-0.82); Monocytes % (auto) 3.8 %; Neutrophils # (auto) 7.96 K/uL (1.4-6.5); Neutrophils % (auto) 91.1 %
[2022-08-28 04:41] LABS: Albumin Globulin Ratio 1.3 (0.9-2); Albumin Level 3.9 gm/dl (3.4-5.0); BUN Creatinine Ratio 20.8 (10-20); Bilirubin,Total 0.9 mg/dl (0.2-1.0); Calcium 9.2 mg/dl (8.5-10.1); Creatinine Clr Calc Pharmacy 29.8 ml/min; Est GFR (African American) 62.9 ml/min; Est GFR (Non-African American) 54.3 ml/min; Potassium 3.8 mmol/L (3.5-5.1); Total Protein 6.9 gm/dl (6.0-8.3)
--- NOTE | 2022-08-28 05:58 | Billing Data ---
Date of Service August 28, 2022 Coding Level of Care Code 35712 Initial Inpt Care Lvl 3
[2022-08-28] MEDS: MoRPHine SULFATE 2 MG/ML CARP IV PRN ×2 (07:21→11:52)
--- NOTE | 2022-08-28 09:18 | Electrocardiogram Report ---
Test Reason : Blood Pressure : / mmHG Vent. Rate : 108 BPM Atrial Rate : 108 BPM P-R Int : 210 ms QRS Dur : 078 ms QT Int : 306 ms P-R-T Axes : 061 020 -37 degrees QTc Int : 410 ms Sinus tachycardia with 1st degree A-V block Possible Left atrial enlargement Nonspecific T wave abnormality Abnormal ECG When compared with ECG of 15-JAN-2001 13:07, [place] interval has increased T wave inversion more evident in Inferior leads Nonspecific T wave abnormality now evident in Anterolateral leads Confirmed by Marcio Huddleston ([id number]) on 08/28/2022 9:17:46 AM Referred By: REFERRED SELF Confirmed By:Ender Huddleston
--- NOTE | 2022-08-28 09:42 | Anesthesiology Consultation ---
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 History Surgery Operation Date: 08/28/22 11:45 Proposed Procedures p Right Bipolar Cemented - Orville Hook DO Height/Weight Height: 4 ft 11 in Weight: 50.5 kg Allergies Allergy/AdvReac Type Severity Reaction Status Date / Time No Known Allergies Allergy Verified 08/27/22 23:01 Medications Home Medications Medication Instructions Recorded Confirmed Last Taken cholecalciferol (vitamin D3) 50 1,000 units PO QPM 05/07/20 08/27/22 07/17/21 mcg (2,000 unit) capsule uvayxqecyvfl-Av-hchg-minerals 1 tab PO DAILY 08/27/22 08/27/22 Unknown Active Medications Generic Name Dose Route Start Last Admin Trade Name Freq PRN Reason Stop Dose Admin Lactated Ringer's 1,000 mls @ 125 mls/hr 08/28/22 00:01 08/28/22 08:24 Lr IV 09/27/22 00:00 125 mls/hr .Q8H SHANTE Administration Morphine Sulfate 2 mg 08/28/22 00:01 08/28/22 07:21 Morphine Sulfate 2 Mg/Ml Carp IV 09/11/22 00:00 2 mg Q3H PRN Administration Pain (1,2,3,4,5) & Pre PT Morphine Sulfate 4 mg 08/28/22 00:01 08/28/22 00:43 Morphine Sulfate 4 Mg/Ml 1 Ml Carp\Vial IV 09/11/22 00:00 4 mg Q3H PRN Administration Pain (6,7,8,9,10) Past Medical History Medical History Chronic kidney disease, stage II (mild) Extramedullary plasmacytoma hx; bladder; treated surgically History of breast cancer > 25 years ago; treated surgically History of colon cancer approx 5 years ago; surgery + chemo History of hemorrhoids Hypertension Osteoporosis Past Family History Family History Sister Mesothelioma Other No family history of adverse response to anesthesia Denies family history of Colon cancer Ovarian cancer Breast cancer Past Surgical History Surgical History H/O mastectomy History of breast surgery Enlargement Procedure with Prosthetic Implant History of cataract surgery History of colon resection History of dilation and curettage History of mastectomy BL History of mastoidectomy History of partial colectomy History of surgery Ureteroplasty Social History Smoking Status: Never smoker Do You Dip or Chew Tobacco: No Hx Alcohol Use: No Hx Substance Use: No substance use type: does not use Physical Exam Vital Signs Last Vital Signs Temp 99.3 F 08/28/22 07:50 Pulse 108 H 08/28/22 07:50 Resp 16 08/28/22 07:50 BP 150/86 H 08/28/22 07:50 Pulse Ox 97 08/28/22 07:50 O2 Del Method 08/28/22 07:50 O2 Flow Rate 2 08/28/22 07:50 Testing Laboratory Results 08/28/22 03:51 08/28/22 03:51 PT 12.9 Seconds (9.0-12.0) H 08/27/22 20:31 INR 1.2 (0.9-1.1) H 08/27/22 20:31 APTT 31.0 Seconds (21.0-31.0) 08/27/22 20:31 Urine Color Yellow 08/27/22 21:03 Urine Appearance Clear (Clear) 08/27/22 21:03 Urine pH 7.5 (4.5-7.5) 08/27/22 21:03 Ur Specific [place] 1.012 (1.000-1.030) 08/27/22 21:03 Urine Protein 3+ (Negative) H 08/27/22 21:03 Urine Glucose (UA) Trace (Negative) H 08/27/22 21:03 Urine Ketones 1+ (Negative) H 08/27/22 21:03 Urine Nitrite Negative (Negative) 08/27/22 21:03 Ur Leukocyte Esterase Negative (Negative) 08/27/22 21:03 Urine WBC (Auto) 1-5 /hpf (0-5) 08/27/22 21:03 Urine RBC (Auto) >30 /hpf (0-4) H 08/27/22 21:03 U Hyaline Cast (Auto) 1-5 /lpf (0-5) 08/27/22 21:03 U Epithel Cells (Auto) 10-20 /lpf (0-5) H 08/27/22 21:03 Urine Bacteria (Auto) Negative (Negative) 08/27/22 21:03 Blood Type O Positive 08/28/22 03:51 Antibody Screen NEGATIVE 08/28/22 03:51 Electrocardiogram Date: 08/27/22 Sinus tachycardia with 1st degree A-V block, 108 bpm Possible Left atrial enlargement Nonspecific T wave abnormality Abnormal ECG When compared with ECG of 15-JAN-2001 13:07, [place] interval has increased T wave inversion more evident in Inferior leads Nonspecific T wave abnormality now evident in Anterolateral leads Confirmed by Marcio Huddleston ([id number]) on 08/28/2022 9:17:46 AM
--- NOTE | 2022-08-28 12:27 | Hospitalist Progress Note ---
Date of Service August 28, 2022 Assessment & Plan (1) Closed right hip fracture: Plan: Patient is an 82 yo female with PMHx of CKD, HTN, colon cancer, osteopenia, secondary renal hyperparathyroidism admitted to [facility] on 08/27/22 for right hip fracture s/p fall. - Fall from standing position at home on 08/27/22 - Hip/pelvis XR: Acute impacted and displaced subcapital right femoral fracture. - Ortho consulted - for OR @ 3pm 08/28 - Pain control regimen: morphine 2mg IV q3h for pain 1-5; morphine 4mg IV q3h for pain 6-10 - Zofran prn nausea - IVF with LR at 100 ml/hr - NPO - Leukocytosis on admission with WBC 12.79, likely reactive (now normal) - Repeat labs in AM - Hu - can be removed pod#1 (2) Hypokalemia: Plan: - Mild hypokalemia, K 3.3 - Replete with 20 mEq K on admission - Recheck was normal at 3.8 (3) Vitamin D deficiency: Plan: - Most recent Vitamin D 06/2022 was 44 - Continue home Vitamin D (4) Proteinuria: Plan: with history of plasmacytoma (resected) - 3+ protein on UA today - Monitor. Recommend outpatient f/u (5) Chronic kidney disease, stage II (mild): Plan: - Patient follows with nephrology, Dr. Burnette - Baseline Cr 1.3 w/ mGFR 69 cc/min (6) Hypertension: Plan: - Hx of HTN that has not required antihypertensive therapy - Suspect HTN on admission associated with pain response - Continue to monitor Plan For OR today with Dr. Hook for surgical repair of R hip fx. Obtain follow up labs in AM. Noted an elevated fasting glucose of 169, added ha1c to am labs. Plan d/w Dr. Spencer, further orders as warranted. Admission and Anticipated Discharge Date Admission Date: August 27, 2022 Subjective Patient seen on rounds this morning. She is resting comfortably in bed, reports some intermittent sharp hip pain that comes and goes. Denies cp or dyspnea. No ho DVT or PE in the past. She is for OR this afternoon with Dr. Hook for repair of R hip fracture. Review of Systems Review of Systems: All systems reviewed and are unremarkable except as noted in HPI and below. Denies fever, chills, fatigue, headache, nasal congestion, sore throat, cough, chest pain, shortness of breath, palpitations, orthopnea, PND, abdominal pain, n/v/d, constipation, dysuria, hematuria, frequency, back pain, easy bruising or bleeding, skin lesions or rashes. Physical Exam Physical Exam: GENERAL: 82 yo Well-developed, well-nourished WF. NAD. LUNGS: Clear to auscultation bilaterally. No W/R/R. CARDIOVASCULAR: Regular rate and rhythm. ABDOMEN: Soft, non-tender and non-distended. BS normoactive x 4 quad. EXTREMITIES: No edema. Non-tender. Peripheral pulses +2/4. NEUROLOGIC: A&O x3. PSYCHIATRIC: Cooperative. Appropriate mood and affect. SKIN: Warm, dry, intact. No rashes or lesions. Results & Data Results & Data ([facility]) Vital Signs (Past 12 Hours) Vital Signs Temp Pulse Pulse Resp BP Pulse Ox Pulse Ox 08/28/22 07:50 37.4 C 108 H 16 150/86 H 97 08/28/22 07:39 08/28/22 07:34 95 08/28/22 04:07 37.1 C 107 H 14 158/89 H 100 08/28/22 02:53 97 08/28/22 01:00 08/28/22 00:21 36.7 C 103 H 18 100 O2 Del Method O2 Del Method O2 Flow Rate O2 Flow Rate 08/28/22 07:50 Nasal Cannula 2 08/28/22 07:39 Nasal Cannula 2 08/28/22 07:34 Nasal Cannula 2 08/28/22 04:07 Nasal Cannula 2 08/28/22 02:53 Nasal Cannula 2 08/28/22 01:00 Nasal Cannula 2 08/28/22 00:21 Nasal Cannula 2 Laboratory Results 08/28/22 03:51 08/28/22 03:51 PG Care Time/CCT Total # of Minutes Spent Total Time Spent with Patient: Total time spent is greater than 50% in coordination of care (as documented) at patient's floor/unit and/or counseling patient: Coding Level of Care Code 33021 Subseq Hosp Care Lvl 2 Diagnoses Closed right hip fracture S72.001A Hypokalemia E87.6 Vitamin D deficiency E55.9 Proteinuria R80.9 Chronic kidney disease, stage II (mild) N18.2 Hypertension I10
--- NOTE | 2022-08-28 12:52 | Orthopedic Consultation ---
Date of Service August 28, 2022 Assessment & Plan (1) Closed subcapital fracture of femur: We discussed diagnosis and treatment options at bedside. I recommended a cemented right hip hemiarthroplasty. She understands the risk, benefits, and alternatives to the procedures like to proceed. Questions were answered and consents were signed. Time was spent at bedside describing the procedure and postop expectations. We plan to do the procedure later this afternoon. History of Present Illness Reason for Consultation: Right femoral neck fracture. Requesting Physician: . Attending Physician: Chance Spencer MD Celsa is a pleasant 82-year-old female who fell while getting up from a kitchen stool yesterday. She was having some hip pain. She was able to sit and read a book for an hour. Afterwards she got up and her hip pain was severe. She decided to come to the emergency room. Radiographs demonstrated a displaced right femoral neck fracture. She was admitted to the medical service. Orthopedics was consulted to evaluate and treat.. Allergies Allergy/AdvReac Type Severity Reaction Status Date / Time No Known Allergies Allergy Verified 08/27/22 23:01 Home Medications Medication Instructions Recorded Confirmed Type cholecalciferol (vitamin D3) 50 1,000 units PO QPM 05/07/20 08/27/22 History mcg (2,000 unit) capsule uncuaxacekrn-Vh-ouav-minerals 1 tab PO DAILY 08/27/22 08/27/22 History Past Med/Surg History Medical History Chronic kidney disease, stage II (mild) Extramedullary plasmacytoma hx; bladder; treated surgically History of breast cancer > 25 years ago; treated surgically History of colon cancer approx 5 years ago; surgery + chemo History of hemorrhoids Hypertension Osteoporosis Surgical History H/O mastectomy History of breast surgery Enlargement Procedure with Prosthetic Implant History of cataract surgery History of colon resection History of dilation and curettage History of mastectomy BL History of mastoidectomy History of partial colectomy History of surgery Ureteroplasty Family History Sister Mesothelioma Other No family history of adverse response to anesthesia Denies family history of Colon cancer Ovarian cancer Breast cancer Social History Smoking Status: Never smoker Second Hand Exposure: No; Do You Dip or Chew Tobacco: No; Tobacco Cessation Education Requested by Patient: No Hx Alcohol Use: No Hx Substance Use: No Preferred Language: Indonesian Communication Ability: Effective Customs And Immigration Officer Required: No Beliefs That Will Affect Care: None marital status: / Current Living Situation: Alone Other Information That Helps Us Care for You: No Feels Safe at Home: Yes Safety Concerns: Feels Safe At This Time Assistive Devices: None Review of Systems All systems reviewed & are unremarkable except as noted in HPI & below. Physical Exam On physical examination the right hip, the right leg is shortened and externally rotated. There are no abrasions, lesions, or lacerations around the hip.. Constitutional WD/WN, vitals as above Eyes PERRL, conjunctivae normal, anicteric sclerae ENMT external ear and nose normal, oropharynx normal Neck trachea midline, no thyromegaly Respiratory normal respiratory effort, lungs clear to auscultation Cardiovascular RRR, no murmur, no edema Gastrointestinal (Abdomen) normal bowel sounds, soft, nontender, no hepatosplenomegaly Skin no rashes, warm and dry Psychiatric A+Ox3, euthymic affect Results & Data Results & Data Laboratory Results . Diagnostic Findings X-rays of the right hip and pelvis show a displaced right femoral neck fracture.. PG Care Time/CCT Total # of Minutes Spent Total Time Spent with Patient: Total time spent is greater than 50% in coordination of care (as documented) at patient's floor/unit and/or counseling patient: Coding Level of Care Code 62592 Inpt Consult Level 4 (57 - DECISION FOR SURGERY) Diagnoses Closed subcapital fracture of femur S72.011A Encounter type: initial encounter Laterality: right (1) Closed subcapital fracture of femur Encounter type: initial encounter Laterality: right Qualified Code(s): S72.011A - Unspecified intracapsular fracture of right femur, initial encounter for closed fracture
--- NOTE | 2022-08-28 12:53 | History & Physical Bridge Note ---
Date of Service August 28, 2022 History & Physical Bridge Note I have examined the patient, reviewed the History & Physical and in the interval since the performance of the History & Physical I have noted the following changes of clinical significance: no changes noted
[2022-08-28] MEDS ORDERED: ceFAZolin 1000MG 1,000 MG/7.5 ML SYR IV ONE (13:00)
[2022-08-28] MEDS ORDERED: ORTHO JOINT ANESTHETIC ONE (13:31)
[2022-08-28] MEDS ORDERED: ATROPINE SULFATE 0.1 MG/ML 10ML SYR IV PRN (13:43)
[2022-08-28] MEDS ORDERED: fentaNYL citrate 100 MCG/2 ML VIAL IV PRN (13:43)
[2022-08-28] MEDS ORDERED: ePHEDrine sulfate 50 MG/ML AMP IV PRN (13:43)
[2022-08-28] MEDS ORDERED: fentaNYL citrate 100 MCG/2 ML VIAL ONE ×2 (13:47→15:01)
[2022-08-28] MEDS ORDERED: ONDANSETRON INJ 2 MG/ML 2 ML VIAL ONE ×2 (13:47→15:39)
[2022-08-28] MEDS ORDERED: PROPOFOL IV EMULSION 10 MG/ML 20 ML VIAL IV ONE (13:47)
[2022-08-28] MEDS ORDERED: DEXAMETHASONE SOD INJ 4 MG/ML VIAL ONE (13:47)
[2022-08-28] MEDS ORDERED: LIDOCAINE 2% MPF LOCAL 5 ML VIAL INFIL ONE (14:31)
[2022-08-28] MEDS ORDERED: TRANEXAMIC ACID / 0.7% NACL 1000MG/100ML BAG IV ONE (14:34)
--- NOTE | 2022-08-28 15:46 | Fluoroscopy Report ---
FL hip RT 1V CLINICAL HISTORY: RT ANTERIOR HIP COMPARISON STUDY: None. FLUOROSCOPY TIME: 6 seconds. FINDINGS: Single fluoroscopic spot image of the right hip demonstrates a right hip hemiarthroplasty. The hardware appears intact. No fracture or dislocation. IMPRESSION: Fluoroscopic assistance provided for a right hip prosthesis. ACT 112: Negative or not required by law. Electronically signed by: Justin Lafleur M.D. 08/28/2022 3:44 PM
--- NOTE | 2022-08-28 15:56 | Operative Report ---
PG Post Operative Report Pre & Post Diagnosis Operation Date: 08/28/22 11:45 Pre-Op Diagnosis: Displaced right femoral neck fracture Post-Op Diagnosis: Displaced right femoral neck fracture I identified the patient and participated in the time-out.: Yes Procedure Operation Date: 08/28/22 11:45 Actual Procedures p Right Anterior Bipolar hemiarthroplasty cemented(Right) - Orville Hook DO Surgeon Orville Hook DO Vessel Master Orville Rosario PA-C Estimated Blood Loss 200 Findings Consistent with Post-Op Diagnosis Specimens Right femoral head Description of Procedure Implants used I used a [employer] total hip arthroplasty system with a size 11 cemented LDFX stem, a 28 mm head with a 0 neck and a 43 mm shell. Celsa was brought down from our hospital room to the preoperative holding area. The operative extremity was identified and signed. She had a preoperative antibiotic. She was taken back to the operating room and laid on the table in supine position. She was given general anesthesia. The right leg was then brought out to a Purist leg positioner. The right hip was then prepped and draped in sterile fashion. A timeout was done. The patient and the operative extremity was properly identified. An anterior approach was used. Dissection was taken down through the fascia and the tensor muscle belly was retracted laterally and the rectus was retracted medially. The circumflex vessels were identified and ligated. The capsule was then incised and tagged for later repair. The femoral neck was then resected and the femoral head and neck were removed. The acetabulum was then exposed. Time was spent doing a labral release. Several head sizes were trialed and a size 43 head seem to be the best fit. The proximal femur was then exposed. Sequential broaching up to a size 11 broach was done. Off that broach a 28 mm 0 head with a 43 mm shell was trialed. The hip was then reduced. Fluoroscopic images showed anatomic alignment of the implants in acceptable length. The broach was then removed. The final size 11 LDFX stem was then cemented into place with Palacos G cement. The 28 mm head with a 0 neck was then snapped into the liner of a 43 mm shell. The bipolar head was then impacted onto the femoral stem. The hip was then reduced. Final fluoroscopic images showed anatomic alignment. The wound was then irrigated. The capsule was then closed with #1 Vicryl suture. A dilute betadyne lavage was then done for 3 minutes. The joint was then irrigated with normal saline solution. The fascia was closed with #1 PDS suture. Skin was closed with 2-0 Vicryl, ronny, and a Silverlon dressing. She was then transferred to a hospital bed and taken to the post anesthesia care unit in stable condition. She tolerated the procedure well. Orville Rosario PA-C, was present for the entire procedure. He was critical for patient positioning, prepping, draping, retraction exposure, wound closure and application of sterile dressing. I attest to the content of the Intraoperative Record and any orders documented therein. Any exceptions are noted below.
[2022-08-28] MEDS ORDERED: ePHEDrine sulfate 50 MG/ML AMP ONE (16:00)
[2022-08-28] MEDS ORDERED: PHENYLEPHRINE 100MCG/ML 5ML SYR ONE (16:00)
--- NOTE | 2022-08-28 16:31 | Anesthesiology Progress Note ---
Date of Service August 28, 2022 Anesthesia Post Procedure Vital Signs Vital Signs: Temp Pulse Pulse Pulse Pulse Resp BP 08/28/22 16:20 37.1 C 96 H 16 08/28/22 16:10 96 H 14 08/28/22 16:00 103 H 19 08/28/22 15:54 37.1 C 107 H 20 08/28/22 11:00 08/28/22 13:19 37.3 C 103 H 20 08/28/22 07:50 37.4 C 108 H 16 08/28/22 07:39 08/28/22 07:34 08/28/22 04:07 37.1 C 107 H 14 08/28/22 02:53 08/28/22 01:00 08/28/22 00:21 36.7 C 103 H 18 08/28/22 00:10 36.7 C 105 H 18 08/27/22 23:11 105 H 16 08/27/22 22:14 106 H 17 08/27/22 18:21 109 H 15 08/27/22 18:18 36.5 C 110 H 20 205/114 H BP BP Pulse Ox Pulse Ox O2 Del Method O2 Del Method O2 Flow Rate 08/28/22 16:20 162/104 H 100 Nasal Cannula 2 08/28/22 16:10 166/95 H 100 Nasal Cannula 2 08/28/22 16:00 148/89 H 100 Oxymask 4 08/28/22 15:54 151/109 H 99 Oxymask 4 08/28/22 11:00 95 Room Air 08/28/22 13:19 144/85 H 93 Room Air 08/28/22 07:50 150/86 H 97 Nasal Cannula 2 08/28/22 07:39 Nasal Cannula 2 08/28/22 07:34 95 Nasal Cannula 08/28/22 04:07 158/89 H 100 Nasal Cannula 2 08/28/22 02:53 97 Nasal Cannula 08/28/22 01:00 Nasal Cannula 2 08/28/22 00:21 100 Nasal Cannula 2 08/28/22 00:10 163/99 H 94 Nasal Cannula 2 08/27/22 23:11 155/100 H 98 Nasal Cannula 2 08/27/22 22:14 148/97 H 96 Room Air 08/27/22 18:21 165/100 H 92 Room Air 08/27/22 18:18 96 Room Air O2 Flow Rate 08/28/22 16:20 08/28/22 16:10 08/28/22 16:00 08/28/22 15:54 08/28/22 11:00 08/28/22 13:19 08/28/22 07:50 08/28/22 07:39 08/28/22 07:34 2 08/28/22 04:07 08/28/22 02:53 2 08/28/22 01:00 08/28/22 00:21 08/28/22 00:10 08/27/22 23:11 08/27/22 22:14 08/27/22 18:21 08/27/22 18:18 Pain Intensity Hip: Pain Intensity: 7 Transfer of Care Handoff Completed per policy Notes Mental Status: alert / awake / arousable and participated in evaluation Patient Amnestic to Procedure: Yes Nausea / Vomiting: adequately controlled Pain: adequately controlled Airway Patency, RR, SpO2: stable & adequate BP & HR: stable & adequate Hydration State: stable & adequate Anesthetic Complications: no major complications apparent and Pt Satisfied with anesthetic care
[2022-08-28] MEDS ORDERED: HYDROmorphone INJ 0.5 MG/0.5 ML SYR IV PRN (16:56)
[2022-08-28] MEDS ORDERED: METOCLOPRAMIDE HCL INJ 5 MG/ML 2 ML VIAL IV PRN (16:56)
[2022-08-28] MEDS ORDERED: oxyCODONE HCL IR 5 MG TAB (IMMEDIATE RELEASE) PO PRN (16:56)
--- NOTE | 2022-08-28 17:17 | XRay Report ---
AP PELVIS, CROSSTABLE LATERAL RIGHT HIP History: Right hip arthroplasty. Right hip fracture. Postop. FINDINGS: The patient is status post a right hip hemiarthroplasty. The hardware is intact. No fractur e or dislocation. Skin ronny and surgical drains are in place. IMPRESSION: Right hip hemiarthroplasty. No evidence for hardware complication ACT 112: Negative or not required by law. Electronically signed by: Justin Lafleur M.D. 08/28/2022 5:16 PM
[2022-08-28] MEDS: SODIUM CHLORIDE 0.9% 1000ML 1,000 ML IV SCH (17:27)
[2022-08-28] MEDS: ASPIRIN 81 MG ECTAB PO SCH (20:26)
[2022-08-28] MEDS: SENNA 8.6 MG TAB PO SCH (20:30)
[2022-08-28] MEDS: DOCUSATE SODIUM 100 MG CAP PO SCH (20:31)
[2022-08-28] MEDS ORDERED: DOCUSATE SODIUM/SENNA 50/8.6MG TAB PO SCH (21:00)
[2022-08-28] MEDS ORDERED: CHOLECALCIFEROL 1,000 UNITS 25 MCG TAB PO SCH (21:00)
[2022-08-28] MEDS: ceFAZolin 2000MG 2,000 MG/15 ML SYR IV SCH (21:53)
[2022-08-28] MEDS: ACETAMINOPHEN 500 MG TAB PO SCH (22:02)
[2022-08-29] MEDS: SODIUM CHLORIDE 0.9% 1000ML 1,000 ML IV SCH (03:10)
[2022-08-29] MEDS: ACETAMINOPHEN 500 MG TAB PO SCH ×3 (05:36→21:38)
[2022-08-29] MEDS: ceFAZolin 2000MG 2,000 MG/15 ML SYR IV SCH (05:36)
--- NOTE | 2022-08-29 07:16 | Orthopedic Progress Note ---
Date of Service August 29, 2022 Assessment & Plan (1) Closed subcapital fracture of femur: Overall she is doing fairly well. She is not having much pain in the right hip. She is on aspirin for DVT prophylaxis. She had some concerns about taking the aspirin due to possible bleeding complications. We discussed the necessity of DVT prophylaxis following hip fracture surgery. We also talked about the risks and benefits of other anticoagulants. We decided to stick with the aspirin 81 mg twice a day. She can be weightbearing as tolerated and ambulating with physical therapy today. She is orthopedically stable for discharge when medically ready. Full orthopedic discharge instructions were placed in the discharge summary. Tyshawn Steen was seen and examined at bedside this morning. Overall she is doing fairly well. She is having too much pain in the right hip. She has not been up and ambulating yet. She was able to get some sleep last night. She has no complaints.. Review of Systems All systems reviewed & are unremarkable except as noted in HPI & below. Physical Exam On physical examination of the right hip, the dressing is clean and dry. Her leg is out full extension. She has active dorsiflexion plantarflexion of her right ankle.. Results & Data Results & Data Laboratory Results . Diagnostic Findings Postoperative x-rays of the right hip show the prosthesis to be in anatomic alignment without any evidence of fracture, desiccation, or loosening. PG Care Time/CCT Total # of Minutes Spent Total Time Spent with Patient: Total time spent is greater than 50% in coordination of care (as documented) at patient's floor/unit and/or counseling patient: Coding Level of Care Code 97640 Post Operative Follow-Up Diagnoses Closed subcapital fracture of femur S72.011A Encounter type: initial encounter Laterality: right (1) Closed subcapital fracture of femur Encounter type: initial encounter Laterality: right Qualified Code(s): S72.011A - Unspecified intracapsular fracture of right femur, initial encounter for closed fracture
[2022-08-29 07:49] LABS: Hematocrit (blood only) 26.3 % (34.1-44.9); Mean Corpuscular Hemoglobin 34.2 pg (25.0-34.0); Mean Corpuscular Hgb Conc 34.2 g/dL (32.0-36.0); Mean Platelet Volume 10.1 fL (9.4-12.3); Platelet Count 119 K/uL (130-400); RDW Coefficient of Variation 12.8 % (11.5-14.5); RDW Standard Deviation 46.4 fL (36.4-46.3); Red Blood Count 2.63 M/uL (3.93-5.22); White Blood Count 7.77 K/ul (4.8-10.8)
[2022-08-29] MEDS ORDERED: dexAMETHasone 4 MG TAB PO SCH (08:00)
[2022-08-29] MEDS: DOCUSATE SODIUM 100 MG CAP PO SCH ×2 (08:00→21:38)
[2022-08-29] MEDS: ASPIRIN 81 MG ECTAB PO SCH ×2 (08:01→21:38)
[2022-08-29] MEDS: MULTIVITAMIN TAB PO SCH (08:01)
[2022-08-29 08:18] LABS: BUN Creatinine Ratio 20.2 (10-20); Calcium 8.3 mg/dl (8.5-10.1); Creatinine Clr Calc Pharmacy 25.1 ml/min; Est GFR (African American) 51.1 ml/min; Est GFR (Non-African American) 44.1 ml/min; Potassium 3.9 mmol/L (3.5-5.1)
[2022-08-29 08:23] LABS: Estimated Average Glucose 103 mg/dl; Hemoglobin A1C 5.2 % (4.5-5.6)
--- NOTE | 2022-08-29 11:40 | Hospitalist Progress Note ---
Date of Service August 29, 2022 Assessment & Plan (1) Closed right hip fracture: Plan: Patient is an 82 yo female with PMHx of CKD, HTN, colon cancer, osteopenia, secondary renal hyperparathyroidism admitted to [facility] on 08/27/22 for right hip fracture s/p fall. - Fall from standing position at home on 08/27/22 - Hip/pelvis XR: Acute impacted and displaced subcapital right femoral fracture. - POD #1 R bipolar hemiarthroplasty - Zofran prn nausea - Pain control with APAP and OxyIR - PT/OT - IS q1-2h while awake - DVT ppx for 4 weeks (2) Acute blood loss anemia: Plan: - Drop post operatively from 12 to 9, suspect a component of dilution as well - Will give a dose of Venofer 300mg IV x1 - Start FeSO4 on 08/30 - Repeat CBC in AM (3) Hypokalemia: Plan: - Mild hypokalemia on admit, K 3.3 - Replaced/resolved (4) Vitamin D deficiency: Plan: - Most recent Vitamin D 06/2022 was 44 - Continue home Vitamin D (5) Proteinuria: Plan: with history of plasmacytoma (resected) - 3+ protein on UA today - Monitor. Recommend outpatient f/u (6) Chronic kidney disease, stage II (mild): Plan: - Patient follows with nephrology, Dr. Burnette - Baseline Cr 1.3 w/ mGFR 69 cc/min (7) Hypertension: Plan: - Hx of HTN that has not required antihypertensive therapy - Suspect HTN on admission associated with pain response - Continue to monitor Plan PT/OT, anticipating will need acute rehab. She is straight medicare so may be an [facility] candidate. Will d/w case management. Plan d/w Dr. Spencer, further orders as warranted. Admission and Anticipated Discharge Date Admission Date: August 27, 2022 Subjective Patient seen on rounds this morning. She is resting in bedside chair. POD #1 R bipolar hemiarthroplasty by Dr. Hook. She reports hip pain is adequately controlled. Denies cp or dyspnea. No leg swelling. She was seen by PT and there has been mention of needing rehab upon d/c. Review of Systems Review of Systems: All systems reviewed and are unremarkable except as noted in HPI and below. Denies fever, chills, fatigue, headache, nasal congestion, sore throat, cough, chest pain, shortness of breath, palpitations, orthopnea, PND, abdominal pain, n/v/d, constipation, dysuria, hematuria, frequency, back pain, easy bruising or bleeding, skin lesions or rashes. Physical Exam Physical Exam: GENERAL: 82 yo Well-developed, well-nourished WF. NAD. LUNGS: Clear to auscultation bilaterally. No W/R/R. CARDIOVASCULAR: Regular rate and rhythm. faint 1/6 MICHELLE ABDOMEN: Soft, non-tender and non-distended. BS normoactive x 4 quad. EXTREMITIES: No edema. Non-tender. Peripheral pulses +2/4. R hip incision dressed with silverlon dressing. No calf tenderness. NV intact. Neg malcolm's sign on R. NEUROLOGIC: A&O x3. PSYCHIATRIC: Cooperative. Appropriate mood and affect. SKIN: Warm, dry, intact. No rashes or lesions. Results & Data Results & Data ([facility]) Vital Signs (Past 12 Hours) Vital Signs Temp Pulse Resp BP Pulse Ox O2 Del Method 08/29/22 07:53 36.9 C 95 H 18 147/81 H 95 Room Air 08/29/22 03:46 37.1 C 90 14 123/79 95 Room Air Laboratory Results 08/29/22 07:21 08/29/22 07:21 PG Care Time/CCT Total # of Minutes Spent Total Time Spent with Patient: Total time spent is greater than 50% in coordination of care (as documented) at patient's floor/unit and/or counseling patient: Coding Level of Care Code 05144 Subseq Hosp Care Lvl 2 Diagnoses Closed right hip fracture S72.001A Acute blood loss anemia D62 Hypokalemia E87.6 Vitamin D deficiency E55.9 Proteinuria R80.9 Chronic kidney disease, stage II (mild) N18.2 Hypertension I10
[2022-08-29] MEDS ORDERED: IRON SUCROSE 300 MG in SODIUM CHLORIDE 0.9% 250 ML IV SCH (12:00)
[2022-08-29] MEDS: SENNA 8.6 MG TAB PO SCH (21:38)
[2022-08-30] MEDS: ACETAMINOPHEN 500 MG TAB PO SCH (05:55)
[2022-08-30 07:02] LABS: Hematocrit (blood only) 25.5 % (34.1-44.9); Mean Corpuscular Hemoglobin 33.8 pg (25.0-34.0); Mean Corpuscular Hgb Conc 35.3 g/dL (32.0-36.0); Mean Corpuscular Volume 95.9 fL (80.0-100.0); Mean Platelet Volume 10.7 fL (9.4-12.3); Platelet Count 138 K/uL (130-400); RDW Coefficient of Variation 12.6 % (11.5-14.5); RDW Standard Deviation 44.1 fL (36.4-46.3); Red Blood Count 2.66 M/uL (3.93-5.22); White Blood Count 8.18 K/ul (4.8-10.8)
--- NOTE | 2022-08-30 07:10 | Orthopedic Progress Note ---
Date of Service August 30, 2022 Assessment & Plan (1) Closed subcapital fracture of femur: Overall she is doing fairly well. She is not having too much pain in the right hip. She will be seen by physical therapy today for ambulation and range of motion exercises. She is on aspirin for DVT prophylaxis. She is orthopedically stable for discharge when medically ready. She will follow-up with orthopedics in 2 weeks. Full orthopedic discharge instructions were placed in the discharge summary. Subjective Celsa was seen and examined at bedside this morning. Overall she is doing fairly well. She is not having too much pain in the right hip. She parti cipated well yesterday with physical therapy. She has no complaints. Review of Systems All systems reviewed & are unremarkable except as noted in HPI & below. Physical Exam On physical examination of the right hip, the dressing is clean and dry. Her leg is out full extension. She has active dorsiflexion plantarflexion of the right ankle.. Results & Data Results & Data Laboratory Results . Diagnostic Findings . PG Care Time/CCT Total # of Minutes Spent Total Time Spent with Patient: Total time spent is greater than 50% in coordination of care (as documented) at patient's floor/unit and/or counseling patient: Coding Level of Care Code 03544 Post Operative Follow-Up Diagnoses Closed subcapital fracture of femur S72.011A Encounter type: initial encounter Laterality: right (1) Closed subcapital fracture of femur Encounter type: initial encounter Laterality: right Qualified Code(s): S72.011A - Unspecified intracapsular fracture of right femur, initial encounter for closed fracture
[2022-08-30] MEDS: ASPIRIN 81 MG ECTAB PO SCH (08:08)
[2022-08-30] MEDS: MULTIVITAMIN TAB PO SCH (08:08)
[2022-08-30] MEDS: DOCUSATE SODIUM 100 MG CAP PO SCH (08:09)
--- NOTE | 2022-08-30 08:25 | Hospitalist Progress Note ---
Date of Service August 30, 2022 Assessment & Plan (1) Closed right hip fracture: Plan: Patient is an 82 yo female with PMHx of CKD, HTN, colon cancer, osteopenia, secondary renal hyperparathyroidism admitted to [facility] on 08/27/22 for right hip fracture s/p fall. - Fall from standing position at home on 08/27/22 - Hip/pelvis XR: Acute impacted and displaced subcapital right femoral fracture. - POD #2 R bipolar hemiarthroplasty - Zofran prn nausea - Pain control with APAP and OxyIR bowel regimen -- last BM recorded 08/27 placed on PO iron supplementation --> will hold for now/check iron studies/venofer if needed. repeat hgb same 9 reported history of colon ca - PT/OT - IS q1-2h while awake - DVT ppx for 4 weeks (2) Acute blood loss anemia: Plan: - Drop post operatively from 12 to 9, suspect a component of dilution as well - Will give a dose of Venofer 300mg IV x1 - Start FeSO4 on 08/30 - Repeat CBC in AM (3) Hypokalemia: Plan: - Mild hypokalemia on admit, K 3.3 - Replaced/resolved (4) Vitamin D deficiency: Plan: - Most recent Vitamin D 06/2022 was 44 - Continue home Vitamin D (5) Proteinuria: Plan: with history of plasmacytoma (resected) - 3+ protein on UA today - Monitor. Recommend outpatient f/u (6) Chronic kidney disease, stage II (mild): Plan: - Patient follows with nephrology, Dr. Burnette - Baseline Cr 1.3 w/ mGFR 69 cc/min (7) Hypertension: Plan: - Hx of HTN that has not required antihypertensive therapy - Suspect HTN on admission associated with pain response - Continue to monitor Plan PT/OT, anticipating will need acute rehab. She is straight medicare so may be an [facility] candidate. Will d/w case management. Plan d/w Dr. Spencer, further orders as warranted. Admission and Anticipated Discharge Date Admission Date: August 27, 2022 Results & Data Results & Data ([facility]) Vital Signs (Past 12 Hours) Vital Signs Temp Pulse Resp BP Pulse Ox O2 Del Method 08/29/22 21:59 36.8 C 96 H 18 152/95 H 96 Room Air PG Care Time/CCT Total # of Minutes Spent Total Time Spent with Patient: Total time spent is greater than 50% in coordination of care (as documented) at patient's floor/unit and/or counseling patient: Coding Diagnoses Closed right hip fracture S72.001A Acute blood loss anemia D62 Hypokalemia E87.6 Vitamin D deficiency E55.9 Proteinuria R80.9 Chronic kidney disease, stage II (mild) N18.2 Hypertension I10
[2022-08-30 10:14] LABS: Ferritin 352.7 ng/ml (8-388)
[2022-08-30 10:17] LABS: Albumin Globulin Ratio 1.1 (0.9-2); Albumin Level 3.3 gm/dl (3.4-5.0); BUN Creatinine Ratio 22.3 (10-20); Bilirubin,Total 0.6 mg/dl (0.2-1.0); Calcium 9.4 mg/dl (8.5-10.1); Creatinine Clr Calc Pharmacy 27.7 ml/min; Est GFR (African American) 57.8 ml/min; Est GFR (Non-African American) 49.9 ml/min; Globulin 2.9 gm/dl (2.5-4.0); Magnesium 2.1 mg/dl (1.7-2.4); Potassium 3.8 mmol/L (3.5-5.1); Total Protein 6.2 gm/dl (6.0-8.3)
--- NOTE | 2022-08-30 11:34 | Hospitalist Progress Note ---
Date of Service August 30, 2022 Assessment & Plan (1) Closed right hip fracture: Plan: Patient is an 82 yo female with PMHx of CKD, HTN, colon cancer, osteopenia, secondary renal hyperparathyroidism admitted to [facility] on 08/27/22 for right hip fracture s/p fall. - Fall from standing position at home on 08/27/22 - Hip/pelvis XR: Acute impacted and displaced subcapital right femoral fracture. - POD #2 R bipolar hemiarthroplasty - Zofran prn nausea - Pain control with APAP and OxyIR bowel regimen -- last BM recorded 08/27 placed on PO iron supplementation --> will hold for now/check iron studies/venofer if needed. repeat hgb same 9 reported history of colon ca - PT/OT - IS q1-2h while awake - DVT ppx for 4 weeks (2) Acute blood loss anemia: Plan: - Drop post operatively from 12 to 9, suspect a component of dilution as well - Will give a dose of Venofer 300mg IV x1 - Start FeSO4 on 08/30 - Repeat CBC in AM (3) Hypokalemia: Plan: - Mild hypokalemia on admit, K 3.3 - Replaced/resolved (4) Vitamin D deficiency: Plan: - Most recent Vitamin D 06/2022 was 44 - Continue home Vitamin D (5) Proteinuria: Plan: with history of plasmacytoma (resected) - 3+ protein on UA today - Monitor. Recommend outpatient f/u (6) Chronic kidney disease, stage II (mild): Plan: - Patient follows with nephrology, Dr. Burnette - Baseline Cr 1.3 w/ mGFR 69 cc/min (7) Hypertension: Plan: - Hx of HTN that has not required antihypertensive therapy - Suspect HTN on admission associated with pain response - Continue to monitor Plan PT/OT, anticipating will need acute rehab. She is straight medicare so may be an [facility] candidate. Will d/w case management. Plan d/w Dr. Spencer, further orders as warranted. Admission and Anticipated Discharge Date Admission Date: August 27, 2022 PG Care Time/CCT Total # of Minutes Spent Total Time Spent with Patient: Total time spent is greater than 50% in coordination of care (as documented) at patient's floor/unit and/or counseling patient: Coding Diagnoses Closed right hip fracture S72.001A Acute blood loss anemia D62 Hypokalemia E87.6 Vitamin D deficiency E55.9 Proteinuria R80.9 Chronic kidney disease, stage II (mild) N18.2 Hypertension I10
--- NOTE | 2022-08-30 11:36 | Discharge Summary ---
Date of Service August 30, 2022 Admission HPI Per Admitting Provider Patient is an 82 yo female with PMHx of CKD, HTN, colon cancer, osteopenia, secondary renal hyperparathyroidism who presented to [facility] on 08/27/22 after fall. Patient states that around 2:00pm this afternoon, she was sitting on a low barstool at her kitchen island when she stood up from the stool, twisted, tripped on the stool, and fell onto the ceramic tile floor. Patient landed on her right elbow and right hip. She did not hit her head or have LOC. Patient was able to stand, clean up her dishes, grab her book, and walk over to her chair to sit. She did, however, note some difficulty with ambulation and pain in the hip. While sitting in the chair, patient had progressively worsening right hip pain and she "knew that it was broken." After about 45 minutes of sitting in the chair, she tried to get up to get Tylenol for pain relief but she was unable to stand/walk out of the chair. Pain progressed to a 9/10 sharp pain. Patient states that she has intermittent sharp pains with attempted movement. Prior to today's fall, she was at her baseline health. No recent illness. Denies fever, chills, CP, SOB, abd pain, nausea, vomiting, diarrhea, constipation, numbness, or tingling. No prior hx of hip fracture. She does have a hx of left wrist fracture about 6-7 years ago and more recently a 3rd metatarsal left foot stress fracture. Patient lives alone with her cat. There are no steps to enter her home. All living is on one floor with no step inside of the home. She does have help; sister lives nearby. Patient is independent in ADLs. She does her own shopping, cooking, and cleaning. Admission Exam Per Admitting Provider GENERAL: No acute distress. Well developed and well nourished. Vital signs reviewed. EYES: PERRLA. EOMI. Anicteric sclerae. HENT: Moist mucous membranes. No pharyngeal erythema or exudates. RESPIRATORY: Clear to auscultation bilaterally with auscultation anteriorly and laterally; unable to listen to posterior lung sheth. No wheezing, rales, or rhonchi. CARDIOVASCULAR: Regular rate and rhythm. No murmurs. No JVD. ABDOMEN: Soft, non-tender and non-distended. Normal bowel sounds. EXTREMITIES: No edema. Right lower extremity shortened and externally rotated. There is a large hematoma over right lateral hip. The left hip is nontender to palpation. Lower extremities NVI bilaterally. There is a large hematoma over right elbow w/o significant tenderness to palpation. SKIN: Warm, dry. NEUROLOGIC: A/O x3. Normal speech. CN II-XII grossly intact, but not individually tested. PSYCHIATRIC: Cooperative. Appropriate mood and affect. Principal Diagnosis Right hip fracture Discharge Exam GENERAL: 82 yo Well-developed, well-nourished WF. NAD. LUNGS: Clear to auscultation bilaterally. No W/R/R. CARDIOVASCULAR: Regular rate and rhythm. faint 1/6 MICHELLE ABDOMEN: Soft, non-tender and non-distended. BS normoactive x 4 quad. prior hemicolectomy scar well healed EXTREMITIES: No edema. Non-tender. Peripheral pulses +2/4. R hip incision dressed with silverlon dressing, blood drainage to proximal aspect (prior reported saturated). No calf tenderness. NV intact. Neg malcolm's sign on R. NEUROLOGIC/Psych: A&O x3, pleasant and cooperative, no focal deficit SKIN: Warm, dry Discharge Data Allergies Allergy/AdvReac Type Severity Reaction Status Date / Time No Known Allergies Allergy Verified 08/27/22 23:01 Procedures Performed Operation Date: 08/28/22 11:45 Actual Procedures p Right Anterior Bipolar Cemented(Right) - Orville Hook, DO Ordered Studies Hip/Pelvis X-Ray 08/27/22 18:52 XR hip RT 2V w pelvis HISTORY: 82 years-old Female fall, hip pain acute right hip pain status post fall COMPARISON: CT abdomen and pelvis 03/26/2014 TECHNIQUE: AP view of the pelvis with 2 views of the right hip FINDINGS: Mild osteoarthritis of the hips. Demineralized appearance of the bones. There is an acute subcapital fracture of the right femur which demonstrates 3.5 cm of superior elevation and several millimeters of impaction. No dislocation. Moderate lateral soft tissue swelling. No additional acute fracture or dislocation identified. IMPRESSION: Acute impacted and displaced subcapital right femoral fracture. ACT 112: Negative or not required by law. The above report was generated using voice recognition software. It may contain grammatical, syntax or spelling errors. Electronically signed by: Primo Ferguson M.D. 08/27/2022 7:27 PM Hip X-Ray 08/28/22 14:06 FL hip RT 1V CLINICAL HISTORY: RT ANTERIOR HIP COMPARISON STUDY: None. FLUOROSCOPY TIME: 6 seconds. FINDINGS: Single fluoroscopic spot image of the right hip demonstrates a right hip hemiarthroplasty. The hardware appears intact. No fracture or dislocation. IMPRESSION: Fluoroscopic assistance provided for a right hip prosthesis. ACT 112: Negative or not required by law. Electronically signed by: Justin Lafleur M.D. 08/28/2022 3:44 PM Hip/Pelvis X-Ray 08/28/22 15:55 AP PELVIS, CROSSTABLE LATERAL RIGHT HIP History: Right hip arthroplasty. Right hip fracture. Postop. FINDINGS: The patient is status post a right hip hemiarthroplasty. The hardware is intact. No fracture or dislocation. Skin ronny and surgical drains are in place. IMPRESSION: Right hip hemiarthroplasty. No evidence for hardware complication ACT 112: Negative or not required by law. Electronically signed by: Justin Lafleur M.D. 08/28/2022 5:16 PM Hospital Course (1) Closed right hip fracture: Patient is an 82 yo female with PMHx of CKD, HTN, colon cancer, osteopenia, secondary renal hyperparathyroidism admitted to [facility] on 08/27/22 for right hip fracture s/p fall when attempting to get cat off chair at home (barstools) Imaging with Acute impacted and displaced subcapital right femoral fracture. Ortho consulted POD #2 R bipolar hemiarthroplasty on 08/[address] Hook. EBL 200cc Pain control/antiemetics prn Given IV venofer x 1, consider PO iron supplementation at rehab/repeat labs in couple of days Of note, did have some increased bleeding from silverlon dressing AM prior to labs. Dressing changed. No CP/SOB, 97% on RA and repeat hgb 9-->9 even with bleeding. PT/OT rec rehab. Lengthy discussion to encourage such given [facility] [place] [facility] strengthening in the [place]. Messaged provider at [facility] her wishes for short inpatient stay Continue ASA 81mg BID x 4 weeks for DVT prophylaxis. F/u ortho in 2 weeks (2) Acute blood loss anemia: Drop post operatively from 12 to 9, suspect a component of dilution as well on IVF Given Venofer 300mg IV x 1, consider PO supplementation for iron at rehab pending repeat blood counts but would avoid acutely to prevent constipation Bleeding from surgical dressing prior to discharge noted, dressing change, remains stable (3) Hypokalemia: - Mild hypokalemia on admit, K 3.3 - Replaced/resolved on repeat (4) Vitamin D deficiency: Most recent Vitamin D 06/2022 was 44 Continued home Vitamin D (5) Proteinuria: with history of plasmacytoma (resected) - 3+ protein on UA today - Monitor. Recommend outpatient f/u follows with [facility] (previously with Dr Urban) Also with history of colon cancer, s/p right hemicoloectomy about ~12 years ago no concerning signs for recurrance --> had recent c=-scope reported in the last year and told no further screenings/follow up required (6) Chronic kidney disease, stage II (mild): - Patient follows with nephrology, Dr. Burnette - Baseline Cr 1.3 w/ mGFR 69 cc/min Cr 1.03 prior to discharge (7) Hypertension: Hx of HTN that has not required antihypertensive therapy - Suspect HTN on admission associated with pain response BP 130/82 prior to discharge Monitor BP with pain control -- if remains elevated would start anti HTN therapy Total Time Total Time Spent Total Time Spent (In Minutes): 60 Discharge Plan Discharge Items Patient Disposition: Transfer Inpatient Rehab Fac Reason For Visit: R HIP FRACTURE Discharge Diagnosis: Right Hip Fracture Condition on Discharge: Good Goals: You have been hospitalized for an urgent problem which required surgery. During your stay at [facility], we have made an effort to correct the problem that brought you to the hospital while keeping you as comfortable as possible. Surgery and medications were used to bring your condition under control and your discharge instructions will include directions for any medications you should take after leaving the hospital. Please make sure to follow the advice of your surgeon regarding follow up with the surgeon and with your primary care provider. Activity: As commented below Non-emergency contact: Primary Care Provider and Surgeon Call non-emergency contact if: you have any medication questions, your symptoms worsen and your pain is not controlled Follow-up/Referrals: Jesús Delgadillo [Primary Care Provider] - Monster,Orville A, DO [Physician] - (2 weeks) Diet: Heart Healthy Addautumn Attending Provider Instructions: You have been hospitalized for a hip fracture. Orthopedics was consulted and you underwent surgical repair. Your labs have remained stable in the setting of some bleeding from your surgical dressing and if you have any shortness of breath/repeated bleeding they may repeat blood counts at [facility]/start iron replacement. You did get a dose of IV iron while in the hospital, but until you have bowels moving, we would recommend not starting this until then. You can continue miralax/colace as needed to assist with bowels, suppository if needed. As discussed, therapy evaluation recommend rehab, and given the cat was the reason you had the fall in the first place, it is recommended you have at least short term at rehab to work on strengthening/conditioning prior to returning home. You should continue aspirin 81mg by mouth twice daily for four weeks to prevent blood clots. You should have follow up with Dr Hook in the next 2 weeks to monitor your progress after surgery. Please follow up with your PCP in the next 7-10 days to monitor your progress after hospitalization. Please return to the ER with any uncontrolled pain, shortness of breath, or for any other symptoms concerning for you. Take care! Addtl [employer] Provider Instructions: ORTHOPEDIC INSTRUCTIONS Hip Hemiarthroplasty Activity and Therapy Recommendations: 1. You were shown a series of exercises in the hospital. Do these exercises three times each day if you are able. 2. Get up and walk several times each day if you are capable. Make sure you have assistance is needed. For the first four weeks, try not to stand or walk for more than one hour at a time. If you do stand or walk for more than one hour, you will not hurt anything, but your leg will likely swell. 3. As you feel comfortable, you may change from the walker or crutches to a cane and then to independent walking if you are able. Please be safe. Medications: 1. Narcotic You will likely be sent from the hospital with the narcotic pain medication that worked best throughout your stay. 2. Aspirin You will be required to take Aspirin 81mg twice a day for 6 weeks after surgery to prevent blood clots. 3. Other medications may be given for specific circumstances. If you have any questions, please call the office at [phone]. 4. Resume previous home medications unless otherwise instructed TEDs/Elastic Stockings: The white elastic stockings help limit swelling and prevent blood clots from forming in your legs. The more you wear them, the more they work. Wear them for six weeks. Dressing Care: Leave the Silverlon dressing in place for 7 days. After 7 days you may remove the dressing. If the incision is not draining then you may leave the ronny open to air. If there is a little bit of drainage or if the ronny are getting stuck on your clothing then cover the incision with a dry dressing. The ronny will be removed at your 2 week follow-up appointment. Showering: You may shower with the Silverlon dressing in place. Do not let the shower spray hit the dressing directly. Pat the Silverlon dressing dry. If the dressing becomes wet underneath, then simply remove the dressing. Keep the incision dry until you are 7 days out from the day of surgery. After 7 days you may remove the Silverlon dressing and shower with the ronny exposed. Let soapy water run over the ronny and pat them dry. Do not scrub or soak the incision. Things To Watch For: 1. Drainage from the incision site that occurs more than one week after your surgery. 2. Increased redness at the incision site. 3. Fever above 102 degrees Fahrenheit. 4. Unusual chest pain or shortness of breath. 5. Call [facility] at with any of the above problems Follow-Up Visit: Follow-up with Dr. Hook's PA (Orville Rosario) 2-3 weeks after your day of surgery. He will remove your ronny and answer any questions. If you have any additional questions or concerns, Dr Hook is usually in the office at the same time and will be available If you have any questions call Pending Studies at Discharge: No Stand-Alone Forms: My [facility] Skilled Items Patient informed of condition?: Yes DNR: No Discharge Level of Care: Acute rehab Communicable Disease: No Discharge Prognosis: Stable Lines: None Urinary Catheter: No Medications and DC Order Prescriptions: New acetaminophen [Tylenol Extra Strength] 500 mg Tablet 1,000 mg PO Q8 Qty: 30 0RF aspirin 81 mg Tablet,Delayed Release (Dr/Ec) 81 mg PO BID 28 Days Qty: 56 0RF bisacodyl 10 mg Suppository 10 mg WA DAILY PRN (Reason: constipation) Qty: 12 0RF docusate sodium 100 mg Capsule 100 mg PO BID Qty: 30 0RF sennosides [Senokot] 8.6 mg Tablet 17.2 mg PO HS Qty: 14 0RF Continued cholecalciferol (vitamin D3) 50 mcg (2,000 unit) capsule 1,000 units PO QPM ytkzmezedyxa-Vr-ueht-minerals Tablet 1 tab PO DAILY Discharge Orders: Discharge Order (Routine); Ordered 08/30/22 Ordered By: Jenniffer Martinez Admission Data Admit Date/Time: 08/27/22 22:03 Attending Provider: Greyson Oconnor Admit Provider: Diaz Mayen Primary Care Provider: Jesús Delgadillo Other Providers: [facility] Other Interventions: Discharge Summary Assessment (RN) Last Done: 08/30/22 12:26 Coding Level of Care Code D/C DAY MANAGEMENT >30 MINS Diagnoses Closed right hip fracture S72.001A Acute blood loss anemia D62 Hypokalemia E87.6 Vitamin D deficiency E55.9 Proteinuria R80.9 Chronic kidney disease, stage II (mild) N18.2 Hypertension I10
[2022-08-30] MEDS ORDERED: FERROUS SULFATE 325 MG TAB PO SCH (17:00)
== END 2022-08-30 15:50 | DRG 522 ==
LOC: ED 18:13 → 3N 22:03 → SUATTDRO 22:03 → 3N 23:55